=== PATIENT | male | born 1950 | race Caucasian/White ===

== ENCOUNTER 2018-09-22 06:51 | Day surgery (SDC) ==
[2018-09-22] MEDS: TETRACAINE 0.5% UNIT-DOSE OP PRN ×2 (07:10→08:05)
[2018-09-22] MEDS: BETADINE OPTH PREP OP PRN ×2 (07:10→08:05)
[2018-09-22] MEDS: CYCLOGYL 2% OPTH OP PRN ×3 (07:11→07:21)
[2018-09-22 07:21] VITALS: TEMP 98
[2018-09-22] MEDS ORDERED: ZOFRAN 4 MG/2 ML IVP ONE (07:27)
[2018-09-22] MEDS ORDERED: ZOFRAN 4 MG/2 ML ONE (08:18)
[2018-09-22] MEDS ORDERED: SUBLIMAZE ONE (08:18)
[2018-09-22] MEDS: LIDOCAINE 1%/PHENYLEPHRINE 1.5% BSS (SURGERY) INTRAOCULA ONE ×2 (08:18→08:23)
[2018-09-22] MEDS: DEX-MOXI-KETOR OPTH INJ 1/0.5/0.4 MG/ML IO ONE ×2 (08:18→08:23)
[2018-09-22] MEDS ORDERED: VERSED ONE (08:18)
[2018-09-22] MEDS: BSS WITH EPINEPHRINE OP ONE ×2 (08:19→08:23)
[2018-09-22] MEDS ORDERED: LIDOCAINE 1% 20 ML MDV ID STA (11:52)
[2018-09-24 09:28] VITALS: BP 126/77
== END 2018-09-22 09:10 | disposition home or self-care (01) ==
LOC: SURG 06:51
PROVIDERS: ATTEND Ophthalmology
DX: H25.811 Combined forms of age-related cataract, right eye (principal)